=== PATIENT | male | born 1950 | race Caucasian/White ===

== ENCOUNTER 2017-08-24 08:48 | Day surgery (SDC) | payer MEDICARE ==
[2017-08-24] VITALS (8 sets, daily range): BP systolic 129–149; BP diastolic 79–99; PULSE 84–96; RESP 18; TEMP 97.4–98; O2SAT 96–99
[~2017-08-24] VITALS: Ht 185.4 cm; Wt 130.8 kg
[2017-08-24] MEDS ORDERED: VITA500T83 PO (09:45)
[2017-08-24] MEDS ORDERED: CARV12.52 PO (09:45)
[2017-08-24] MEDS ORDERED: FERR325T18 PO (09:45)
[2017-08-24] MEDS ORDERED: FURO1TAB60 PO (09:45)
[2017-08-24] MEDS ORDERED: ASPI81TA17 PO (09:45)
[2017-08-24] MEDS ORDERED: VITA10002 PO (09:45)
[2017-08-24] MEDS ORDERED: METF1000 PO (09:45)
[2017-08-24] MEDS ORDERED: SPIR25TA PO (09:45)
[2017-08-24] MEDS ORDERED: TAMS0.4C4 PO (09:45)
[2017-08-24] MEDS ORDERED: CHEL200T PO (09:45)
[2017-08-24] MEDS ORDERED: OMEG100046 (09:45)
[2017-08-24] MEDS ORDERED: ATOR40TA16 PO (09:45)
[2017-08-24] MEDS ORDERED: MULT-65 PO (09:45)
[2017-08-24 09:53] LABS: AUTOMATED NEUTROPHIL # 5.1 TH/MM3 (1.8-7.7); BASOPHIL % 0.5 % (0.0-2.0); EOSINOPHIL # 0.2 TH/MM3 (0-0.4); EOSINOPHIL % 2.4 % (0.0-4.0); HEMATOCRIT 32.2 % (39.0-51.0); HEMOGLOBIN 11.1 GM/DL (13.0-17.0); LYMPH % 13.6 % (9.0-44.0); LYMPHOCYTE # 0.9 TH/MM3 (1.0-4.8); MEAN CELL VOLUME 95.6 FL (80.0-100.0); MEAN CORPUSCULAR HEMOGLOBIN 32.9 PG (27.0-34.0); MEAN CORPUSCULAR HGB CONC 34.4 % (32.0-36.0); MEAN PLATELET VOLUME 7.8 FL (7.0-11.0); MONO % 8.1 % (0.0-8.0); MONOCYTE # 0.5 TH/MM3 (0-0.9); NEUT % 75.4 % (16.0-70.0); PLATELET COUNT 195 TH/MM3 (150-450); RED BLOOD COUNT 3.37 MIL/MM3 (4.50-5.90); RED CELL DISTRIBUTION WIDTH 13.5 % (11.6-17.2); WHITE BLOOD COUNT 6.7 TH/MM3 (4.0-11.0)
[2017-08-24] MEDS ORDERED: MUPIROCIN 2% OINT 1 APPLIC/GM SYR NASAL SCH (10:00)
[2017-08-24] MEDS ORDERED: CHLORHEXIDINE GLUCONATE 2 % 1 PACK (2 CLOTHS) TOPICAL SCH (10:00)
[2017-08-24] MEDS ORDERED: ceFAZolin 2 GM PREMIX 50 ML IV SCH (10:00)
[2017-08-24] MEDS ORDERED: VANCOMYCIN 1000 MG/NS 250 ML IV SCH ×2 (10:00)
[2017-08-24] MEDS ORDERED: LORazepam 1 MG TAB SL SCH (10:00)
[2017-08-24] MEDS ORDERED: POVIDONE IODINE 5% (ANTISEPSIS KIT) 4 APPLICATIONS EACH NARE SCH (10:00)
[2017-08-24 10:04] LABS: PROTHROMBIN TIME - PATIENT 10.6 SEC (9.8-11.6)
[2017-08-24 10:12] LABS: BICARBONATE 23.9 MEQ/L (21.0-32.0); CALCIUM 9.1 MG/DL (8.5-10.1); CREATININE 2.14 MG/DL (0.60-1.30)
[2017-08-24] MEDS ORDERED: METOPROLOL TARTRATE 25 MG TAB PO PRN (10:15)
[2017-08-24] MEDS ORDERED: POVIDONE IODINE 5% (ANTISEPSIS KIT) 4 APPLICATIONS EACH NARE PRN (10:15)
[2017-08-24] MEDS ORDERED: CHLORHEXIDINE GLUCONATE 2 % 1 PACK (2 CLOTHS) TOPICAL PRN (10:15)
[2017-08-24] MEDS ORDERED: LACTATED RINGER'S 1000 ML IV PRN (10:15)
[2017-08-24] MEDS ORDERED: SODIUM CHLORID 0.9% 500 ML IV PRN (10:15)
[2017-08-24] MEDS ORDERED: PHENYLEPH/NS 1000 MCG/10 ML SYR IV ONE (12:00)
[2017-08-24] MEDS ORDERED: PROPOFOL 200 MG/20 ML AMP IV ONE (12:00)
[2017-08-24] MEDS ORDERED: HEPARIN-NS/PF INJ 1,000 ML ONE (13:41)
[2017-08-24] MEDS ORDERED: MIDAZOLAM HCL 2 MG/2 ML VIAL ONE (13:51)
[2017-08-24] MEDS ORDERED: FAMOTIDINE 20 MG/2 ML VIAL ONE (13:51)
[2017-08-24] MEDS ORDERED: VANCOMYCIN 500 MG VIAL ONE (14:06)
[2017-08-24] MEDS ORDERED: LIDOCAINE HCL 2% 50 ML VIAL ONE (14:06)
--- NOTE | 2017-08-24 14:57 | CATHPROC ---
[employer] HIS Report Study Information Study Number Admission Scheduled Start Study Start [id number] Aug 24 2017 8:48AM 08/24/2017 Aug 24 2017 1:38PM [place] [facility] Cardiac Pacer/ICD Admit Source Facility Department Other [facility] - Footwear Stitcher Physician and Clinical Staff Initial Desmond Muse Damper Maker Shila Bey,JOVITA Damper Maker Sarahi Renee,RT(R) TECH2 Other Anesthesia, PUMP OILER Recorder Iliana Paul RN Recorder Shila Bey,JOVITA Scrub Jasmin Nelson,DOCUMENT RESTORER TECH2 Equipment Time Esthetician/Owner Description Size Mfg Part Number Used/Scraped [id number] 14:06 Sequent INDUSTRIES PACK, CCL CUSTOM * Used *[id number] 14:06 MEDLINE PACER PRAKASH, LIMB * 2530 *[id number] Used [id number] 14:06 [employer] MEDICAL BLANKET,WARM AIR CCL * Used *[id number] 893761 14:07 [employer] MEDICAL CATHETER, JSN, QUAD FR 5 Used *[id number] 962471 14:07 [employer] MEDICAL CATHETER, JSN, QUAD FR 5 Used *[id number] 896314 14:07 [employer] MEDICAL CATHETER, JSN, QUAD FR 5 Used *[id number] 586839 14:07 [employer] MEDICAL CATHETER, JSN, QUAD FR 5 Used *[id number] 555044 14:06 [employer] MEDICAL SHEATH, EPS, FR5 FAST CATH FR 5 Used *[id number] 105990 14:06 [employer] MEDICAL SHEATH, EPS, FR5 FAST CATH FR 5 Used *[id number] 589710 14:06 [employer] MEDICAL SHEATH, EPS, FR5 FAST CATH FR 5 Used *[id number] 718174 14:06 [employer] MEDICAL SHEATH, EPS, FR6 FAST CATH FR 6 Used *[id number] Labs Hgb (g/dl) Hct (%) RBC (MIL/MM3) WBC (l/cumm) Platelets (thousands) 11.60-17.00 35.00-51.00 4.00-5.90 4.00-11.00 150.00-450.00 11.1 32.2 3.4 6.7 195 Glucose (mg/dl) BUN (mg/dl) Creatinine (mg/dl) BUN:Creatinine (1:x) 74.00-106.00 7.00-18.00 0.50-1.30 10.00-20.00 184 33 2.1 15.7 Na (meq/l) K (meq/l) 136.00-145.00 3.50-5.10 136 5 INR (PTT:PT) 0.90-1.10 1 Medication Medication Total Dose (Bolus/Oral) Medication Total Dosage/Unit 1% XYLOCAINE 20 mL Medications (Bolus/Oral) Medication Time Given Dosage/Unit Administered By Reason 1% XYLOCAINE 08/24/2017 2:39:53 PM 20 mL Anesthesia, PUMP OILER 20 mL 1% XYLOCAINE given in lab by Anesthesia, PUMP OILER in Right Groin via Subcutaneous. Ordered by Desmond Matos. Medication (Drip) Medication Time Given Dosage/Unit Concentration/Unit Diluent (ml) Solution ANCEF 08/24/2017 2:01:28 PM 1 g 1 g ANCEF given in lab by Anesthesia, PUMP OILER via Peripheral IV. Ordered by Desmond Matos. Reason: As pe r physicians verbal order. Chronological Log Time Study Chronological Log 13:51:12 Patient Name, D.O.B, / Armband Verified By R.N. 13:51:14 Patient arrived via Bed. 13:51:18 Consent signed by the physician and the patient and verified by the Footwear Stitcher staff. 13:51:20 Patient has been NPO for More than 6Hrs. 13:52:23 Pre-op and post- op instructions given; patient acknowledges understanding of instructions . 13:52:25 Verbal Stimulation=2 Physical Stimulation=2 Airway=2 Respiration=2 TOTAL=8. (0=absent, 1=l imited, 2=present) 13:53:14 Skin Breakdown- none per pt. 13:54:22 Patient Warmer Placed on the Table. 13:54:25 Disposable Defibrillator Pads Placed On Patient. 13:55:23 Bovie ground pad applied to: right thigh 13:56:00 Alison Prominences Protected 13:56:02 A # 20 IV was noted in the Wrist (right). Grade = 0 0.9% NaCl at KVO 13:57:00 A # 20 IV was noted in the Forearm (left). Grade = 0 0.9% NaCl at KVO 13:58:56 Anesthesia at bedside. Assumes care of patient. 14:00:30 History and physical on the chart. 1 g ANCEF given in lab by Anesthesia, PUMP OILER via Peripheral IV. Ordered by Desmond Matos. Reason: As per physicians 14:01:28 verbal order. 14:06:49 Medtronic rep present in lab for procedure 14:07:27 Table restraints applied according to hospital policy 14:13:32 Bilateral groins prepped with 2% chlorhexidine, and draped after a 3 minute waiting time. 14:14:06 MD paged 14:20:01 Reference ECG taken 14:32:40 MD arrived. Time Out. Correct patient, procedure, procedure equipment, site and side verified with physicia n present. Time 14:37:15 concurred by MD, individual staff and PUMP OILER. Time Out #2 - Consents verified, patient in correct position, all results are labled and displa yed, safety precautions 14:37:50 taken, antibiotics administered. Time out concurred by MD, individual staff and PUMP OILER in procedu re 14:38:02 Case Start 14:39:53 20 mL 1% XYLOCAINE given in lab by Anesthesia, PUMP OILER in Right Groin via Subcutaneous. Ordere d by Desmond Matos. 14:40:00 Vascular access was obtained in the Fem Vein (right). 14:40:05 Vascular access was obtained in the Fem Vein (right). 14:40:06 Vascular access was obtained in the Fem Vein (right). 14:40:06 Vascular access was obtained in the Fem Vein (right). 14:40:27 A SHEATH, EPS, FR5 FAST CATH FR 5 was advanced into the Fem Vein (right) using the Modified Seldinger technique. 14:40:39 A SHEATH, EPS, FR5 FAST CATH FR 5 was advanced into the Fem Vein (right) using the Modified Seldinger technique. 14:40:42 A SHEATH, EPS, FR5 FAST CATH FR 5 was advanced into the Fem Vein (right) using the Modified Seldinger technique. 14:40:44 A SHEATH, EPS, FR6 FAST CATH FR 6 was advanced into the Fem Vein (right) using the Modified Seldinger technique. A CATHETER, JSN, QUAD FR 5 was advanced vis Fem Vein (right) and placed in the CS. Placement wa s visually 14:45:15 confirmed under fluoroscopy. A CATHETER, JSN, QUAD FR 5 was advanced vis Fem Vein (right) and placed in the HIS. Placement w as visually 14:45:36 confirmed under fluoroscopy. A CATHETER, JSN, QUAD FR 5 was advanced vis Fem Vein (right) and placed in the RVA. Placement w as visually 14:45:47 confirmed under fluoroscopy. A CATHETER, JSN, QUAD FR 5 was advanced vis Fem Vein (right) and placed in the HRA. Placement w as visually 14:45:55 confirmed under fluoroscopy. 14:47:07 EP study in progress 14:52:00 EPS complete. 14:52:16 3 quad Catheter(s) except CS removed without difficulty. 14:52:44 Sheath(s) left in place, 0.9ns kvo connected, secured and will be removed in Holding Area 14:54:20 No case complications noted. 14:54:20 Cine recording checked. 14:54:22 Case End 14:54:33 NOTE: This patient is undergoing an additional procedure while still in the Cardiac Cath La b. 16:26:20 EP Procedure was performed. End Study - Contrast Media Used In Study Contrast Total Opened (mL) Total Used (mL) Total Wasted (mL) Unspecified 0 0 0 End Study - Maximum Contrast Load Max Contrast Load (mL) 311.5 End Study - Radiation Exposure Fluoro Time (minutes) 1.4 End Study - Patient Disposition Complications Transferred To Interventional Outcome No Footwear Stitcher Holding successful
[2017-08-24] MEDS ORDERED: PROPOFOL 200 MG/20 ML AMP ONE (15:53)
[2017-08-24] MEDS ORDERED: FUROSEMIDE 40 MG/4 ML VIAL ONE (16:13)
--- NOTE | 2017-08-24 16:25 | CATHPROC ---
[email or web address] HIS Report Study Information Study Number Admission Scheduled Start Study Start [id number] Aug 24 2017 8:48AM 08/24/2017 Aug 24 2017 2:58PM [place] Service Electrophysiology Study Admit Source Facility Department Other [facility] - Joint Supervisor Physician and Clinical Staff Initial Desmond Muse Circulation Man Mike Lucas,RT(R) Circulation Man Sarahi Renee,RT(R) TECH2 Other Anesthesia, SEARCH ADVERTISING STRATEGIST Recorder Neli Robison,JOVITA Scrub Jasmin Nelson,POSTDOCTORAL SCIENTIST TECH2 Procedures Performed Procedure Location (Site) Vessel Name Lead Insertion Venogram Coronary Sinus Other Equipment Time Salvage Engineering Technician Description Size Mfg Part Number Used/Scraped [id number] 15:40 [employer] WIRE, ASAHI PROWATER 180CM 180CM Used *[id number] 10230-85 15:50 [employer]AYA CRIT[employer] C[employer] WIRE, ASAHI PROWATER 180CM 180CM Used *[id number] 19458-24 15:54 ZELAYA CRIT[employer] CARE WIRE, ASAHI PROWATER 180CM 180CM Used *[id number] DERMABOND, ADHESIVE SKIN [id number] 15:07 CORDIS/PACER * Used GLUE MINI *[id number] TP-1103 15:07 [employer] SUTURE, STRIP PLUS 1/2" * Used *[id number] 15:07 Improve Digital PACER PRAKASH, LIMB * 2530 *[id number] Used [id number] 15:07 Improve Digital PACER PACK, PACER CUSTOM * Used *[id number] 15:26 [employer] MEDICAL PACER SAFE SHEATH, FR7, 13CM FR 7 [id number] Used 15:26 [employer] MEDICAL PACER SAFE SHEATH, FR9, 13CM FR 9 CLS-1009 Used 15:26 [employer]COM Storage MEDICAL PACER SAFE SHEATH, FR9, 13CM FR 9 CLS-1009 Used 15:08 Needle Sponge Count 2 22 Used 15:11 Needle Sponge Count 20 200 Used 15:11 Needle Sponge Count 4 4 Used 15:41 NYCOMED OMNIPAQUE, 300 MG, 50ML 50ML [id number] Used SUTURE, 0 ETHIBOND [CT1] (CX21D), 8pk SUTURE, 2-0 VICRYL [CT1] (MSI693Y) SUTURE, 2-0 VICRYL [CT1] (KFJ120L) [id number] 15:07 [employer] BLANKET,WARM AIR CCL * Used *[id number] [facility] PAD, ELECTROSURGICAL 15:07 * [id number] *[id number] Used SURGICAL GROUNDING ORANGE LEAD, ATTAIN PERFORMA 15:42 VITATRON MEDTRONIC 88CM 4398-88CM Used STRAIGHT, 88CM LEAD, CAPSURE FIX NOVUS, 4076-52CM 15:30 VITATRON MEDTRONIC 52CM Used 52CM *[id number] LEAD, SPRINT QUATTRO SECURE [id number]-[id number] 15:24 VITATRON MEDTRONIC 62CM Used S 62CM *[id number] LEAD, SPRINT QUATTRO SECURE 6935M-62CM 15:30 VITATRON MEDTRONIC 62CM Used S 62CM *[id number] PACEMAKER, AMPLIA MRI RIVETING MACHINE OPERATOR-D 16:09 VITATRON MEDTRONIC DDEDDDDR [id number] Used SURESCAN [id number] 15:07 [employer]Sky. / * Used *18498 Equipment Model, Serial, Lot Number and Expiration Data Description Model Number Serial Number Lot Number Expiration Date LEAD, ATTAIN PERFORMA 4398-88 [id number] 06-25-2019 STRAIGHT, 88CM LEAD, CAPSURE FIX NOVUS, 52CM 4076-52 [id number] 06-13-2019 LEAD, SPRINT QUATTRO SECURE S 6935M-62 [id number] 06-28-2019 62CM PACEMAKER, AMPLIA MRI RIVETING MACHINE OPERATOR-D [id number] 04-02-2018 SURESCAN Medication Medication Total Dose (Bolus/Oral) Medication Total Dosage/Unit 2% XYLOCAINE 50 mL LASIX 40 mg Medications (Bolus/Oral) Medication Time Given Dosage/Unit Administered By Reason 2% XYLOCAINE 08/24/2017 3:19:32 PM 50 mL Desmond Matos 50 mL 2% XYLOCAINE given in lab by Desmond Matos in Left upper chest via Subcutaneous. LASIX 08/24/2017 4:30:30 PM 40 mg Anesthesia, SEARCH ADVERTISING STRATEGIST As per physicians verbal order 40 mg LASIX given in lab by Anesthesia, SEARCH ADVERTISING STRATEGIST via Peripheral IV. Ordered by Desmond Matos. Reason: As per physicians verbal order. Final Case Assessment Cardiovascular HR Rhythm NIBP Chest Pain 83 evp head of smg americas experience strategy 140/75 0 Edema Present Skin color Skin None Normal Warm Dry Circulatory - Right Pulses Dorsalis Pedis Radial 1 1 Scale (0,1,2,3,4,d) Circulatory - Left Pulses Dorsalis Pedis Radial 1 1 Scale (0,1,2,3,4,d) Circulatory - Lower Extremities Color Lower Right Color Lower Left Normal Normal Neurological State Lethargic Moves all extremities Respiration - General Respiration Rate SpO2 (%) O2 (lpm) (B/min) 16 100 6 Chronological Log Time Study Chronological Log 14:54:58 NOTE: This patient is undergoing an additional procedure while still in the Cardiac Cath La b. 14:55:00 Initial procedure has been completed. Beginning additional procedure. 14:55:29 Anesthesia remains at bedside. Assuming care of patient. Sweetie Velarde 14:55:50 2% CHLORHEXIDINE GLUCONATE WASH AND NASAL SWIPE DONE PRIOR TO PROCEDURE. 14:55:57 Bovie ground pad applied to: right thigh 15:01:09 Upper Chest Prepped Times Two. First Sponge And Instrument Count Done by Jasmin Nelson, POSTDOCTORAL SCIENTIST TECH2. 15:07:34 Hypo's: 4, Sponges: 20, Bovie/scratch: 2 Sutures: 10, Blades: 1, Instruments: 26, Syveck Patches: 0 15:10:30 MD arrived. 15:19:25 Case Start 15:19:32 50 mL 2% XYLOCAINE given in lab by Desmond Matos in Left upper chest via Subcutaneous. 15:20:09 Reference ECG taken 15:23:30 Vascular access was obtained in the Subclav. Vein (Lft. 15:23:35 Vascular access was obtained in the Subclav. Vein (Lft. 15:23:36 Wire inserted 15:24:46 Wire inserted 15:24:48 Surgical Incision Made. 15:24:55 A SAFE SHEATH, FR7, 13CM FR 7 was advanced into the Subclav. Vein (Lft using the Modified S eldinger technique. 15:27:52 A LEAD, SPRINT QUATTRO SECURE S 62CM 62CM was inserted and positioned in the RV. 15:28:22 Lead placement verified under fluoroscopy 15:28:24 The RV lead impedance and threshold being tested. 15:28:54 A SAFE SHEATH, FR9, 13CM FR 9 was advanced into the Subclav. Vein (Lft using the Modified S eldinger technique. 15:29:33 A LEAD, CAPSURE FIX NOVUS, 52CM 52CM was inserted and positioned in the RA. 15:31:36 Lead placement verified under fluoroscopy 15:31:46 The Atrial lead impedance and threshold is being tested. 15:37:16 The Atrial lead was sutured to the fascia. 15:37:28 The RV lead was sutured to the fascia. 15:37:53 Vascular access was obtained in the Subclav. Vein (Lft. A SAFE SHEATH, FR9, 13CM FR 9 was advanced into the Subclav. Vein (Lft using the Modified Seldi nger technique. CS 15:38:00 using guide wire prowater 15:39:47 Wire removed 15:39:56 The Coronary Sinus was manually injected with 10 cc's of contrast. OMNIPAQUE, 300 MG, 50ML 50ML used. 15:49:38 The previous wire was exchanged for a 2nd WIRE, ASAHI PROWATER 180CM 180CM. 15:54:04 The previous wire was exchanged for a 3rd WIRE, ASAHI PROWATER 180CM 180CM. 15:55:10 CS Lead attached to prssurized heparin saline bag 16:00:29 A LEAD, ATTAIN PERFORMA STRAIGHT, 88CM 88CM was inserted and positioned in the CS/LV. 16:02:00 The CS/LV lead impedance and threshold is being tested. 16:02:53 The CS/LV lead was sutured to the fascia. 16:07:59 Pocket flushed with antibiotic solution 16:08:54 A PACEMAKER, AMPLIA MRI RIVETING MACHINE OPERATOR-D SURESCAN DDEDDDDR was connected and placed in the pocket. Second Sponge And Instrument Count Done by Jasmin Nelson, POSTDOCTORAL SCIENTIST TECH2. 16:11:01 Hypo's: 4, Sponges: 20, Bovie/scratch: 2 Sutures: 10, Blades: 1, Instruments: Syveck Patches: 16:16:00 The pocket was closed. Final Sponge And Instrument Count Done by Jasmin Nelson, POSTDOCTORAL SCIENTIST TECH2. 16:16:18 Hypo's: 4, Sponges: 20, Bovie/scratch: 2 Sutures: 10, Blades: 1, Instruments: 26, Syveck Patches: 0 16:16:46 CICU called. Spoke to Dorothea 16:17:49 Bedside Report will be given. 16:17:52 Implant Procedure was performed. 16:17:59 A Bivent ICD Implant . (~PPM TYPE~) 16:18:13 Case End 16:18:28 Steri-strips and a sterile dressing applied to L upper chest site. 16:19:08 CS Catheter(s) removed without difficulty 16:20:17 No case complications noted. 16:20:18 Cine recording checked. 16:21:30 Sheath removed; pressure applied to access site for 10 minutes by HH. Assessment: Final Case, HR=83 BPM, Rhythm=evp head of smg americas experience strategy, QHGH=351/75 mmhg, Chest Pain=0, Edema=None, [place] r=Normal, Skin = Warm, Dry Right Pulses: Hernando Ped=1, Radial=1 Left Pulses: Hernando Ped=1, Radial=1 16:22:43 Lower Right Extremities: Color=Normal Lower Left Extremities: Color=Normal Neurological: State=Lethargic, FISH Respiration: Resp=16 B/min, NxA0=627 %, O2=6 lpm 16:28:37 A sling was placed on the affected arm. 40 mg LASIX given in lab by Anesthesia, SEARCH ADVERTISING STRATEGIST via Peripheral IV. Ordered by Desmond Matos. Reas on: As per physicians 16:30:30 verbal order. 16:32:51 Sterile dressing applied to R groin site 16:35:22 Patient moved to [facility] End Study - Contrast Media Used In Study Contrast Total Opened (mL) Total Used (mL) Total Wasted (mL) Omnipaque 50 15 35 End Study - Radiation Exposure Fluoro Time (minutes) 16.5 End Study - Sheaths Sheaths Pulled By Sheath Hold Time (min) Sarahi Renee 10 End Study - Patient Disposition Complications Transferred To Interventional Outcome No Telemetry Bed successful
--- NOTE | 2017-08-24 17:01 | PD.CARD ---
BIV/ICD Implantation PROCEDURE DATE: Aug 24, 2017 NYHA Classification: Class III (Moderate) Prevention: Primary BIV/ICD IMPLANT PROCEDURE Biventricular pacer defibrillator implantation. INDICATION FOR PROCEDURE Mr. Manzano is a 66-year-old male with congestive heart failure, cardiomyopathy, QRS 130ms, admits for electrophysiology study and biventricular pacer defibrillator implantation. Post electrophysiology study the patient was kept on the table for device implantation. The risks, the nature and the benefit of the procedure were clearly stated to him. The risks include pneumothorax, cardiac perforation, stroke and even . He understood and agreed to proceed. EF 30-35%. on optimal medical management for over 3 months. PROCEDURE As written informed consent was obtained prior to electrophysiology study, the patient was kept on the table where he was prepped and draped in the usual sterile fashion. Conscious sedation was initiated and maintained throughout the procedure by the anesthesiologist. Once sedation was verified, the left infraclavicular area was anesthetized with 2% Xylocaine. Using modified Seldinger technique, the left subclavian vein was cannulated on three occasions and three guidewire were advanced. Then, using an 11 blade scalpel, a 3 cm incision was made three fingers breath under the left clavicle. The incision was taken down to the fascial layer using Bovie cautery and blunt dissection. Into the inferomedial direction, a device pocket was dissected. Then the wires were dissected into pocket. A 2-0 Vicryl suture was placed around the wires to prevent back-bleeding. At this point, over the lateral wire, a 9-Barbadian dilator and introducer were advanced. As the dilator and wire were removed, an active fixation right ventricular pacing sensing defibrillatory lead was advanced. After adequate pacing and sensing thresholds were obtained, the lead was secured in the pocket using # 2 Ethibond suture. Then, over the lateral wire, a 7-Barbadian dilator and introducer was advanced. As the dilator and wire were removed, an active fixation right atrial pacing and sensing lead was advanced. The patient was in atrial fibrillation and thresholds could not be obtained, but there was adequate impedance and sensing. Then, over the remaining wire, a 9-Barbadian dilator and introducer were advanced. As the dilator and wire were removed, a CS cannulation sheath was advanced. Through the sheath a quadripolar steerable catheter was advanced. After multiple manipulations the coronary sinus was cannulated, and CS venography showed an adequate lateral branch. Using a Prowater wire the lateral branch was cannulated and the lead was advanced over the wire. After adequate pacing and sensing thresholds were obtained, the peel-away introducer was removed and the cutter introducer was removed, and the lead was secured in the pocket using # 2 Ethibond suture. At that point, the pocket was copiously irrigated with antibiotic solution. The leads were connected to the generator and placed into pocket. Because of the patient's general condition and was so unstable during the procedure, I decided not to proceed with device testing. I did proceed with wound closure. The deep fascial layer was approximated using 2-0 Vicryl suture in a continuous fashion. The subcutaneous layer was approximated with 2-0 Vicryl suture in a continuous fashion. The subcuticular layer was approximated with 2-0 Vicryl suture in a continuous fashion. Dermabond adhesive was applied to the wound followed by a sterile pressure dressing. This was a very complex case. The patient was unstable during the procedure, but no complications reported. Blood loss was minimal. IMPLANTED HARDWARE The implanted biventricular pacer defibrillator is a Medtronic model QSSK0XJ, serial number [id number]. The right atrial pacing and sensing lead is a Medtronic model number 4076-52, serial number [id number]. The right ventricle pacing sensing defibrillatory is a Medtronic model 6935M-62, serial number [id number]. The left ventricular pacing sensing lead is a Medtronic model 4398-88, serial number [id number]. THRESHOLDS The right atrial pacing threshold could not be measured. The patient was in atrial fibrillation. Fib wave was at 1.0 millivolts and impedance 660 ohms. The right ventricle pacing threshold in the bipolar mode was 1.0 volts at 0.4 milliseconds, lead impedance 942 ohms. The left ventricular pacing threshold in the bipolar mode was 2.5 volts at 0.5 milliseconds, lead impedance 930 ohms. SETTINGS The device was set in a VVI 70, upper limit 120 beats per minute. LV first by 40 milliseconds. The defibrillatory portion was set for two zones. One zone for ventricular tachycardia between 170 and 250 beats per minute on the monitor ventricular tachycardia. The initial therapy consisted of one burst of ATP, one RAMP, 81%, 10 pause, 10 millisecond decremental followed by 20, then 25 and 35 joules all subsequent defibrillatory shocks. The second zone is for ventricle fibrillation above 250, the first therapy at 25 and all subsequent shocks at 35 joules defibrillatory shock. CONCLUSIONS Successful biventricular pacer defibrillator implantation, that was a complex case. COMMENT AND RECOMMENDATION The patient will be transferred to the telemetry unit. He will be observed and when stable can be discharged home. Desmond Matos MD Aug 24, 2017 17:01
--- NOTE | 2017-08-24 17:14 | PD.CARD ---
ELECTROPHYSIOLOGY STUDY PROCEDURE DATE: Aug 24, 2017 ELECTROPHYSIOLOGY STUDY NOTE PROCEDURE Electrophysiology study, coronary sinus cannulation. HISTORY Mr. Manzano is a 66 -year-old male with congestive heart failure, ischemic cardiomyopathy, ejection fraction 30-35%, on optimal medical management , admits for electrophysiology study and biventricular pacer defibrillator implantation for sudden prevention. The risks, the nature and the benefit of the procedure are clearly stated to him . Risks include pneumothorax, cardiac perforation, stroke and even . He understood and agreed to proceed. PROCEDURE NOTE After written informed consent was obtained, the patient was brought to the EP lab where he was prepped and draped in the usual sterile fashion. Conscious sedation was initiated and maintained throughout the procedure by anesthesiologist. Once sedation was verified, the right inguinal area was anesthetized with 2% Xylocaine. Using modified Seldinger technique, the right femoral vein was cannulated on four occasions and four guidewires were advanced. Then, over the wires three 5 and one 6 Argentine Hemaquets were advanced. Then, under fluoroscopic guidance through the 5 and 6 [place] Hemaquet four 5 Argentine Mirtha curved quadripolar electrophysiology catheters were advanced and positioned along the His, upper right atrium, RV apex and coronary sinus. The patient was in atrial fibrillation. Ventricular pacing protocol was performed. No tachycardia was induced. Isuprel was not initiated because patient HR was high and in atrial fibrillation. At that point, procedure was complete. All catheters and Hemaquet were removed. The patient will be kept on the table and a biventricular pacer defibrillator will be implanted for sudden prevention. No incident reported. The patient tolerated the procedure. Blood loss minimal. IMPRESSION 1. Electrocardiogram: At baseline the patient was in atrial fibrillation. Post-procedure electrocardiogram was unchanged. 2. Basic Interval: The basic cycle length was around 580 milliseconds. H-V was around 84 milliseconds. 3. Ventricular Pacing Protocol: no tachycardia was induced. CONCLUSIONS Negative electrophysiology study for ventricular arrhythmia. Atrial fibrillation COMMENT AND RECOMMENDATION The patient will be kept on the table and a biventricular pacer defibrillator will be implanted for sudden prevention prevention. Coumadin will be initiated (creat 2.13). Cardioversion will performed in 3-4 weeks. Desmond Matos MD Aug 24, 2017 17:14
[2017-08-24] MEDS ORDERED: LORazepam 2 MG/ML VIAL IV PUSH PRN (17:15)
[2017-08-24] MEDS ORDERED: SODIUM CHLOR 0.9% 250 ML INJ 250 ML IV PRN (17:15)
[2017-08-24] MEDS ORDERED: ONDANSETRON HCL 4 MG/2 ML VIAL IV PUSH PRN ×2 (17:15)
[2017-08-24] MEDS ORDERED: BACITRACIN OINT 0.9 GM PKT TOP ONE (17:15)
[2017-08-24] MEDS ORDERED: ATROPINE SULFATE 1 MG/ML VIAL IV PUSH PRN (17:15)
[2017-08-24] MEDS ORDERED: oxyCODONE/ACETAMINOPHEN 5 MG/325 MG TAB PO PRN ×2 (17:15)
[2017-08-24] MEDS ORDERED: LIDOCAINE HCL 1% 50 ML VIAL INFIL PRN (17:15)
[2017-08-24] MEDS ORDERED: SODIUM CHLORIDE 0.9% FLUSH 10 ML FLUSH IV FLUSH PRN (17:15)
--- NOTE | 2017-08-24 17:51 | RADRPT ---
EXAM DATE/TIME: 08/24/2017 17:10 [place] COMPARISON: No previous studies available for comparison. INDICATIONS : Post pacemaker placement MEDICAL HISTORY : None. SURGICAL HISTORY : None. ENCOUNTER: Initial ACUITY: 1 day PAIN SCORE: 0/10 LOCATION: Bilateral chest FINDINGS: The cardiac silhouette is enlarged in transverse diameter. A bipolar pacemaker is in place via a left sided approach. There is no evidence of pneumothorax. The lungs are free of acute parenchymal opaci ty. No effusions are identified. CONCLUSION: 1. Cardiomegaly. No acute pulmonary disease. There is no evidence of pneumothorax. Tyrone Milan MD on August 24, 2017 at 17:48 Board Certified Radiologist. This report was verified electronically.
[2017-08-24] MEDS ORDERED: metFORMIN HCL 500 MG TAB PO SCH (18:00)
[2017-08-24] MEDS: FUROSEMIDE 40 MG TAB PO SCH (18:22)
[2017-08-24] MEDS ORDERED: DO NOT ADM ANY ANTICOAGULANT DRUGS PRN (18:45)
[2017-08-24] MEDS ORDERED: ATORVASTATIN 40 MG TAB PO SCH (21:00)
[2017-08-24] MEDS ORDERED: TAMSULOSIN HCL 0.4 MG CAP PO SCH (21:00)
[2017-08-24] MEDS: SODIUM CHLORIDE 0.9% FLUSH 10 ML FLUSH IV FLUSH SCH (21:16)
[2017-08-24] MEDS: ceFAZolin 2 GM PREMIX 50 ML IV SCH (21:17)
[2017-08-24] MEDS: CARVEDILOL 12.5 MG TAB PO SCH (21:18)
[2017-08-24] MEDS: NS 1000 ML IV SCH (21:23)
--- NOTE | 2017-08-24 21:23 | EKG ---
Date Performed: 08/24/2017 Time Performed: 09:46:28 PTAGE: 66 years EKG: Atrial fibrillation with PVC(s) or aberrant ventricular conduction. Left axis deviation IV conduction defect Lateral ST-T changes are probably due to ventricular hypertrophy Abnormal ECG NO PREVIOUS TRACING DOCTOR: Baljinder Cortez Interpretating Date/Time 08/24/2017 21:22:43
[2017-08-25] VITALS (17 sets, daily range): BP systolic 94–114; BP diastolic 60–76; PULSE 85–108; RESP 18–19; TEMP 97.4–98; O2SAT 96–98
[2017-08-25] MEDS: ceFAZolin 2 GM PREMIX 50 ML IV SCH ×2 (05:46→12:39)
[2017-08-25 07:18] LABS: INTERNATIONAL NORMALIZED RATIO 1.1 RATIO
[2017-08-25] MEDS ORDERED: FERROUS SULFATE 325 MG (65 MG ELEMENTAL IRON) TAB PO SCH (09:00)
[2017-08-25] MEDS ORDERED: ASPIRIN EC 81 MG TABEC PO SCH (09:00)
[2017-08-25] MEDS ORDERED: MULTIVITAMIN TAB PO SCH (09:00)
[2017-08-25] MEDS ORDERED: CYANOCOBALAMIN 1,000 MCG TAB PO SCH (09:00)
[2017-08-25] MEDS: SODIUM CHLORIDE 0.9% FLUSH 10 ML FLUSH IV FLUSH SCH (09:05)
[2017-08-25] MEDS: CARVEDILOL 12.5 MG TAB PO SCH (09:05)
[2017-08-25] MEDS: FUROSEMIDE 40 MG TAB PO SCH (09:07)
[2017-08-25] MEDS: NS 1000 ML IV SCH (09:07)
--- NOTE | 2017-08-25 12:00 | PD.CARD.PN ---
Subjective Subjective Remarks no overnight events Objective Medications Current Medications Medications (Trade) Dose Ordered Sig/Cynthia Route Start Time Stop Time Status Last Admin Sodium Chloride 1,000 ml @ 30 mls/hr Q24H IV 08/24/17 10:00 Cefazolin Sodium/ Dextrose 50 ml @ 100 mls/hr MOLD MOVER IV 08/24/17 10:00 08/27/17 09:59 Vancomycin HCl 1000 mg/Sodium Chloride 250 ml @ 250 mls/hr MOLD MOVER IV 08/24/17 10:00 08/27/17 09:59 (Ativan) 1 mg MOLD MOVER SL 08/24/17 10:00 08/27/17 09:59 (Betadine 5% Antisepsis Kit) 2 applic MOLD MOVER EACH NARE 08/24/17 10:00 08/27/17 09:59 (Bactroban Nasal 2% Oint) 1 applic MOLD MOVER NASAL 08/24/17 10:00 08/27/17 09:59 (Chlorhexidine 2% Cloth) 3 pack MOLD MOVER TOPICAL 08/24/17 10:00 08/27/17 09:59 (Percocet 5-325 Mg) 1 tab Q4H PRN PO 08/24/17 17:15 08/25/17 01:40 (Percocet 5-325 Mg) 2 tab Q4H PRN PO 08/24/17 17:15 (Ativan Inj) 0.5 mg UNSCH PRN IV PUSH 08/24/17 17:15 08/25/17 17:14 (Atropine Inj) 0.5 mg UNSCH PRN IV PUSH 08/24/17 17:15 Sodium Chloride 250 ml @ 500 mls/hr ONCE PRN IV 08/24/17 17:15 08/25/17 17:14 (Zofran Inj) 4 mg Q4H PRN IV PUSH 08/24/17 17:15 (Xylocaine 1% Inj (50 ml)) 10 ml UNSCH PRN INFIL 08/24/17 17:15 08/25/17 17:14 Cefazolin Sodium/ Dextrose 50 ml @ 100 mls/hr Q8H IV 08/24/17 21:00 08/25/17 13:29 08/25/17 05:46 (Zofran Inj) 4 mg Q4H PRN IV PUSH 08/24/17 17:15 (NS Flush) 2 ml BID IV FLUSH 08/24/17 21:00 08/25/17 09:05 (NS Flush) 2 ml UNSCH PRN IV FLUSH 08/24/17 17:15 (Ecotrin Ec) 81 mg DAILY PO 08/25/17 09:00 08/25/17 09:05 (Lipitor) 40 mg HS PO 08/24/17 21:00 08/24/17 21:17 (Coreg) 12.5 mg BID PO 08/24/17 21:00 08/25/17 09:05 (Vitamin B12) 1,000 mcg DAILY PO 08/25/17 09:00 08/25/17 09:05 (Ferrous Sulfate) 325 mg DAILY PO 08/25/17 09:00 08/25/17 09:05 (Lasix) 40 mg BID@0900,1800 PO 08/24/17 18:00 08/25/17 09:07 (Glucophage) 1,000 mg BIDPC PO 08/24/17 18:00 Future Hold (Flomax) 0.4 mg HS PO 08/24/17 21:00 08/24/17 21:17 (Theragran) 1 tab DAILY PO 08/25/17 09:00 08/25/17 09:05 Miscellaneous Information ALL NURSING DEPARTME... UNSCH PRN .XX 08/24/17 18:45 08/25/17 18:44 Vital Signs / I&O Vital Signs Date Time Temp Pulse Resp B/P (MAP) Pulse Ox O2 Delivery O2 Flow Rate FiO2 08/25/17 11:15 97.4 94 19 112/60 (77) 96 08/25/17 10:00 98 08/25/17 09:00 108 08/25/17 09:00 114/76 (89) 08/25/17 08:00 92 08/25/17 07:45 98.0 94 19 94/66 (75) 97 08/25/17 07:00 102 08/25/17 06:00 90 08/25/17 05:00 88 08/25/17 04:00 96 08/25/17 03:35 85 18 112/63 (79) 98 08/25/17 03:00 85 08/25/17 02:00 94 08/25/17 01:00 90 1/6/18 00:00 92 08/24/17 23:12 84 08/24/17 23:00 89 18 129/84 (99) 97 08/24/17 22:00 96 08/24/17 21:00 92 08/24/17 20:15 98.0 88 18 143/79 (100) 99 08/24/17 20:00 84 08/24/17 19:00 92 I/O 08/24/17 08/24/17 08/24/17 08/25/17 08/25/17 08/25/17 07:00 15:00 23:00 07:00 15:00 23:00 Intake Total 170 ml 300 ml Output Total 250 ml 900 ml Balance -80 ml -600 ml Intake Oral 120 ml 300 ml IV Total 50 ml Output Urine Total 250 ml 900 ml Physical Exam GENERAL: Well-nourished, well-developed patient. SKIN: Warm and dry. HEAD: Normocephalic. EYES: No scleral icterus. No injection or drainage. NECK: Supple, trachea midline. No JVD or lymphadenopathy. CARDIOVASCULAR: Regular rate and rhythm without murmurs, gallops, or rubs. RESPIRATORY: Breath sounds equal bilaterally. No accessory muscle use. GASTROINTESTINAL: Abdomen soft, non-tender, nondistended. EXTREMITIES: No cyanosis, or edema. NEUROLOGICAL: Awake, alert, and oriented x 3. Non-focal. Laboratory Laboratory Tests Test 08/25/17 06:09 Prothrombin Time 11.0 SEC Prothromb Time International Ratio 1.1 RATIO Activated Partial Thromboplast Time 25.6 SEC Assessment and Plan Problem List: (1) Biventricular ICD (implantable cardioverter-defibrillator) in place ICD Codes: Z95.810 - Presence of automatic (implantable) cardiac defibrillator Plan: Stable No CV complaints D/C home today Douglas Ta MD Aug 25, 2017 12:00
--- NOTE | 2017-08-25 13:08 | EKG ---
Date Performed: 08/24/2017 Time Performed: 21:58:30 PTAGE: 66 years EKG: Demand pacing Pacemaker rhythm - no further analysis Abnormal ECG PREVIOUS TRACING 08/24/17 Since previous tracing, the pacemaker is new. DOCTOR: Uriel Samaniego Interpretating Date/Time 08/25/2017 13:08:03
--- NOTE | 2017-08-25 13:10 | EKG ---
Date Performed: 08/25/2017 Time Performed: 04:02:08 PTAGE: 66 years EKG: Atrial fibrillation with what appears to be demand pacing with pacer spikes in the QRS Unde lrying rhythm appears to be atrial fibrillation [place] leftward Poor R-wave progression across the prec ordium Nonspecific ST-T change Abnormal ECG PREVIOUS TRACING : 08/24/2017 21.58 Since previous tracing, no significant change. Previous tra cing may also show underlying atrial fibrillation and pacer spikes in the QRS. DOCTOR: Uriel Samaniego Interpretating Date/Time 08/25/2017 13:10:00
== END 2017-08-25 14:16 | disposition home or self-care (01) ==
LOC: HDIC 08:48 → HDOC 08:48 → HCIS 16:53 → HDOC 08-25 14:16
PROVIDERS: ATTEND Internal Medicine Interventional Cardiology
DX: I11.0 Hypertensive heart disease with heart failure (principal); I50.20 Unspecified systolic (congestive) heart failure; I48.91 Unspecified atrial fibrillation; I25.5 Ischemic cardiomyopathy; I44.7 Left bundle-branch block, unspecified; E11.610 Type 2 diabetes mellitus with diabetic neuropathic arthropathy; R42 Dizziness and giddiness; E78.5 Hyperlipidemia, unspecified; I73.9 Peripheral vascular disease, unspecified; R53.83 Other fatigue; R06.00 Dyspnea, unspecified; Z79.84 Long term (current) use of oral hypoglycemic drugs; Z79.82 Long term (current) use of aspirin
CPT/HCPCS: 00530; 33225; 33249; 71045; 80048; 85025; 85610; 85730; 86850; 86900; 86901; 93005; 93620; C1730; C1769; C1777; C1882; C1898; C1900; J0690; J1644; J1940; J2250; J2370; J3010; J3370